=== PATIENT | male | born 1975 | race Caucasian/White ===

== ENCOUNTER 2018-02-01 15:15 | Emergency (ER) | payer SELFPAY ==
[2018-02-01 15:21] VITALS: BP 117/69
--- NOTE | 2018-02-01 16:19 | RADIOLOGY REPORT (SQ) ---
EXAM DESCRIPTION: WRIST LEFT 3 VIEWS COMPLETED DATE/TIME: 02/01/2018 3:56 pm REASON FOR STUDY: Wrist injury from fall yesterday COMPARISON: None. NUMBER OF VIEWS: Three views. TECHNIQUE: AP, lateral, and oblique radiographic images acquired of the left wrist. LIMITATIONS: None. FINDINGS: MINERALIZATION: Normal. BONES: No acute fracture or dislocation. No worrisome bone lesions. Normal alignment. SOFT TISSUES: No soft tissue swelling. No foreign body. OTHER: No other significant finding. IMPRESSION: NEGATIVE STUDY OF THE LEFT WRIST. NO RADIOGRAPHIC EVIDENCE OF ACUTE INJURY. TECHNICAL DOCUMENTATION: JOB ID: [id number] [employer]- All Rights Reserved Reading location - IP/workstation name: [email or web address]
--- NOTE | 2018-02-01 17:06 | RADIOLOGY REPORT (SQ) ---
EXAM DESCRIPTION: HAND RIGHT 3 VIEWS COMPLETED DATE/TIME: 02/01/2018 4:56 pm REASON FOR STUDY: Trauma and pain COMPARISON: None. EXAM PARAMETERS: NUMBER OF VIEWS: Three views. TECHNIQUE: AP, lateral and oblique radiographic images acquired of the right hand. LIMITATIONS: None. FINDINGS: MINERALIZATION: Normal. BONES: No acute fracture or dislocation. No worrisome bone lesions. JOINTS: No effusions. SOFT TISSUES: No soft tissue swelling. No foreign body. OTHER: No other significant finding. IMPRESSION: NEGATIVE STUDY OF THE RIGHT HAND. NO RADIOGRAPHIC EVIDENCE OF ACUTE INJURY. TECHNICAL DOCUMENTATION: JOB ID: [id number] [employer]- All Rights Reserved Reading location - IP/workstation name: [email or web address]
--- NOTE | 2018-02-01 17:06 | RADIOLOGY REPORT (SQ) ---
EXAM DESCRIPTION: ELBOW RIGHT OVER 2 VIEWS COMPLETED DATE/TIME: 02/01/2018 4:56 pm REASON FOR STUDY: Trauma and pain COMPARISON: None. NUMBER OF VIEWS: Four views. TECHNIQUE: AP, lateral, and both oblique radiographic images acquired of the right elbow. LIMITATIONS: None. FINDINGS: MINERALIZATION: Normal. BONES: On the lateral view, there is minimal cortical irregularity of the coronoid process of the uln a. Remainder of the bony structures are intact. JOINT: No effusion. SOFT TISSUES: No soft tissue swelling. No foreign body. OTHER: No other significant finding. IMPRESSION: MINIMAL CORTICAL IRREGULARITY OF THE CORONOID PROCESS OF THE ULNA. THIS MAY BE CHRONIC OR COULD INDICATE A TINY AVULSION INJURY. NO OTHER SIGNIFICANT FINDINGS. TECHNICAL DOCUMENTATION: JOB ID: [id number] [employer]- All Rights Reserved Reading location - IP/workstation name: [email or web address]
--- NOTE | 2018-02-01 17:13 | ER Document Report ---
ED General - General Chief Complaint: Wrist Injury Stated Complaint: WRIST PAIN Time Seen by Provider: 02/01/18 16:36 TRAVEL OUTSIDE OF THE [place] IN LAST 30 DAYS: No COUNTRY TRAVELED TO/FROM: [facility] Notes: 42-year-old male who presents with right wrist injury. 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 Severe sharp and achy, primarily radial aspect in nature. Nonradiating, no head injury, no loss consciousness. No other modifying factors, no other associated symptoms, no other provocative or palliative factors. - Related Data Allergies/Adverse Reactions: No Known Allergies Allergy (Verified 02/01/18 15:16) Past Medical History - Social History Smoking Status: Never Smoker Family History: Reviewed & Not Pertinent, CAD - Medical History Medical History: Negative Pulmonary Medical History: Reports: Hx Asthma, Hx COPD Past Surgical History: Reports: Hx Orthopedic Surgery - right wrist x 2, right knee - Immunizations Hx Diphtheria, Pertussis, Tetanus Vaccination: Yes Review of Systems - Review of Systems Notes: No head injury, no vomiting, no chest pain, no abdominal pain Physical Exam - Vital signs Vitals: Temp Pulse Resp BP Pulse Ox 98.1 F 76 16 117/69 96 02/01/18 15:20 02/01/18 15:20 02/01/18 15:20 02/01/18 15:20 02/01/18 15:20 - Notes Notes: General: Well-developed, well-nourished HEENT: Normocephalic. No external trauma noted. No watson sign, no hemotympanum. Mucosa is moist. No intraoral trauma. Neck: Midline trachea, no JVD. No midline cervical spine tenderness. No step- off or deformity. Chest: Normal excursion, no accessory muscle use. No gross trauma. Abdomen: Soft, nondistended. Nontender. No bruising. Pelvis: Stable. Vascular: Strong and symmetric upper and lower extremity pulses. Well-perfused extremities. Motor: Normal tone and power. Neurologic: Alert, nonfocal. Sensation symmetric and intact. Skin: No significant lacerations or purpura. Extremities: No cyanosis. Point tenderness noted about the posterior lateral elbow, radial aspect of the wrist, dorsal hand. No deformity. No bruising. Course - Re-evaluation Re-evalutation: Well-appearing male with isolated right upper extremity injury. Will obtain plain films of the wrist, hand, elbow, treat pain and reassess. Plain films are unremarkable with the exception of the wrist which show some slight cortical irregularity of the ulnar coronoid process it is felt to be old. On reexamination the patient has no point tenderness in this area. Patient is given a cockup splint, sling for comfort, close outpatient follow-up. - Vital Signs Vital signs: Temp Pulse Resp BP Pulse Ox 98.1 F 76 16 117/69 96 02/01/18 15:20 02/01/18 15:20 02/01/18 15:20 02/01/18 15:20 02/01/18 15:20 Discharge - Discharge Clinical Impression: Wrist sprain Qualifiers: Encounter type: initial encounter Laterality: right Qualified Code(s): S63.501A - Unspecified sprain of right wrist, initial encounter Condition: Stable Disposition: HOME, SELF-CARE Instructions: Wrist Sprain ([facility])
== END 2018-02-01 17:30 | disposition home or self-care (01) ==
LOC: ER 15:15
DX: S63.501A Unspecified sprain of right wrist, initial encounter (principal); M25.521 Pain in right elbow; M25.531 Pain in right wrist; M79.641 Pain in right hand; W11.XXXA Fall on and from ladder, initial encounter; J44.9 Chronic obstructive pulmonary disease, unspecified
CPT/HCPCS: 99283; 73080; 73130; 73110; L3908

== ENCOUNTER 2018-02-08 09:23 | Emergency (ER) | payer SELFPAY ==
[2018-02-08 09:28] VITALS: BP 125/86
--- NOTE | 2018-02-08 10:05 | ER Document Report ---
HPI - HPI Patient complains to provider of: recheck Onset: Last week Onset/Duration: Better Quality of pain: No pain Pain Level: 0 Context: Patient states that he fell on outstretched hand last week injuring his right wrist. Patient states that he was seen and placed in a wrist splint. Patient states that his employer requires a note clearing him to return back to work. Patient denies any new injury. Associated Symptoms: None Exacerbated by: Denies Relieved by: Denies Similar symptoms previously: No Recently seen / treated by doctor: Yes - ROS ROS below otherwise negative: Yes Systems Reviewed and Negative: Yes All other systems reviewed and negative - REPRODUCTIVE Reproductive: DENIES: : - MUSCULOSKELETAL Musculoskeletal: DENIES: Extremity pain, Swelling - DERM Skin Color: Normal Past Medical History - General Information source: Patient - Social History Smoking Status: Current Every Day Smoker Smoking Education Provided: Yes Frequency of alcohol use: None Drug Abuse: None Occupation: electro mechanical assembler Family History: Reviewed & Not Pertinent, CAD Pulmonary Medical History: Reports: Hx Asthma, Hx COPD Renal/ Medical History: Denies: Hx Peritoneal Dialysis Past Surgical History: Reports: Hx Orthopedic Surgery - right wrist x 2, right knee - Immunizations Hx Diphtheria, Pertussis, Tetanus Vaccination: Yes Vertical Provider Document - CONSTITUTIONAL Agree With Documented VS: Yes General Appearance: WD/WN, No Apparent Distress - INFECTION CONTROL TRAVEL OUTSIDE OF THE [place] IN LAST 30 DAYS: No - HEENT HEENT: Atraumatic, Normocephalic - NECK Neck: Normal Inspection - RESPIRATORY Respiratory: No Respiratory Distress - CARDIOVASCULAR Pulses: Normal: Radial - MUSCULOSKELETAL/EXTREMETIES Musculoskeletal/Extremeties: MAEW, FROM, Non-Tender, No Edema - NEURO Level of Consciousness: Awake, Alert, Appropriate Motor/Sensory: No Motor Deficit, No Sensory Deficit - DERM Integumentary: Warm, Dry, No Rash Course - Vital Signs Vital signs: Temp Pulse Resp BP Pulse Ox 97.7 F 74 16 125/86 H 97 02/08/18 09:27 02/08/18 09:27 02/08/18 09:27 02/08/18 09:27 02/08/18 09:27 - Diagnostic Test Radiology reviewed: Reports reviewed - from previous er visit Discharge - Discharge Clinical Impression: Normal exam, Hx of sprain of wrist Condition: Stable Disposition: HOME, SELF-CARE Instructions: Normal Exam and Workup ([facility]) Additional Instructions: Return immediately for any new or worsening symptoms Followup with your primary care provider, call tomorrow to make a followup appointment Follow-up with orthopedic doctor for any continued pain or problems Forms: Smoking Cessation Education, Return to Work Referrals: [facility] [Provider Group] - Follow up as needed [facility] [Provider Group] - Follow up as needed [facility] [Provider Group] - Follow up as needed
== END 2018-02-08 10:20 | disposition home or self-care (01) ==
LOC: ER 09:23
DX: Z09 Encounter for follow-up examination after completed treatment for conditions other than malignant neoplasm (principal)
CPT/HCPCS: 99281

== ENCOUNTER 2019-01-31 12:14 | Emergency (ER) | payer OTHER ==
[2019-01-31] MEDS ORDERED: ACETAMINOPHEN 325 MG TABLET PO ONE (12:41)
--- NOTE | 2019-01-31 12:41 | ER Document Report ---
ED Medical Screen (RME) - General Chief Complaint: Back Injury Stated Complaint: BACK PAIN Time Seen by Provider: 01/31/19 12:29 TRAVEL OUTSIDE OF THE [place] IN LAST 30 DAYS: No COUNTRY TRAVELED TO/FROM: [facility] Notes: 01/31/19 12:38 Patient is a 43-year-old male with a history of PE who presents emergency department complaining of having hemoptysis with the last episode about 5-6 days ago, but continuing to have pain to the mid back with deep inspiration. Patient states that he is not currently on any blood thinning medications. Patient also presents complaining of left mid to low back pain status post injury while at work. Patient states that a month ago he injured his back which was improving until he was lifting something yesterday and heard a pop in his back. Patient states that twisting and bending movements make his pain worse. He is otherwise eating and drinking without difficulty. He is urinating normally and having normal bowel movements. Denies any headache, fever, URI, sore throat, chest pain, palpitations, syncope, shortness of breath, wheeze, dyspnea, abdominal pain, nausea/vomiting/diarrhea, urinary retention, dysuria, hematuria, loss of control of bowel or bladder, numbness/tingling, saddle anesthesia, muscle paralysis/weakness, or rash. I have treated and performed a rapid initial assessment of this patient. A comprehensive ED assessment and evaluation of the patient, analysis of test results and completion of medical decision making process will be conducted by additional ED providers. PHYSICAL EXAMINATION: GENERAL: Well-appearing, well-nourished and in no acute distress. A&Ox4. Answers questions appropriately. LUNGS: Breath sounds clear to auscultation bilaterally and equal. No wheezes rales or rhonchi. HEART: Regular rate and rhythm without murmurs, rubs, gallops. Musculoskeletal: LE's b/l: FROM to passive/active. Strength 5+/5. No deficits noted. No bony tenderness of extremities. Back: FROM to passive/active. Strength 5+/5. No vertebral point tenderness, stepoffs, or deformities. No other bony tenderness, erythema, swelling, or ecchymosis. SLR negative b/l. There is noted spasming and left T/L paraspinal muscle tenderness that reproduces pain when palpated. No SI jt tenderness. No foot drop Extremities: No cyanosis, clubbing, or edema b/l. NEUROLOGICAL: Normal speech, normal gait. PSYCH: Normal mood, normal affect. - Related Data Allergies/Adverse Reactions: No Known Allergies Allergy (Verified 01/31/19 12:15) Past Medical History - Social History Frequency of alcohol use: Occasional Drug Abuse: None Pulmonary Medical History: Reports: Hx Asthma, Hx COPD Renal/ Medical History: Denies: Hx Peritoneal Dialysis Past Surgical History: Reports: Hx Orthopedic Surgery - right wrist x 2, right knee, Lt wrist - Immunizations Hx Diphtheria, Pertussis, Tetanus Vaccination: Yes Physical Exam - Vital signs Vitals: Temp Pulse Resp BP Pulse Ox 98.0 F 65 14 130/71 H 96 01/31/19 12:21 01/31/19 12:21 01/31/19 12:21 01/31/19 12:21 01/31/19 12:21 Course - Vital Signs Vital signs: Temp Pulse Resp BP Pulse Ox 98.0 F 65 14 130/71 H 96 01/31/19 12:21 01/31/19 12:21 01/31/19 12:21 01/31/19 12:21 01/31/19 12:21
[2019-01-31] MEDS ORDERED: LIDOCAINE 5% (700 MG) TRANSDERMAL ADH..PATCH TP ONE (12:42)
[2019-01-31 13:01] LABS: ABSOLUTE BASOPHILS # (AUTO) 0.1 10^3/uL (0.0-0.2); ABSOLUTE EOSINOPHILS # (AUTO) 0.4 10^3/uL (0.0-0.6); ABSOLUTE LYMPHOCYTES (AUTO) 1.5 10^3/uL (0.5-4.7); ABSOLUTE MONOCYTES (AUTO) 0.6 10^3/uL (0.1-1.4); ABSOLUTE NEUT (AUTO) 3.8 10^3/uL (1.7-8.2); BASOPHILS % (AUTO) 0.9 % (0-2); EOSINOPHILS % (AUTO) 6.3 % (0-6); HEMATOCRIT 41.2 % (37.9-51.0); HEMOGLOBIN 14.2 g/dL (13.5-17.0); LYMPHOCYTES % (AUTO) 22.9 % (13-45); MEAN CORPUSCULAR HEMOGLOBIN 32.5 pg (27.0-33.4); MEAN CORPUSCULAR HGB CONC 34.6 g/dL (32.0-36.0); MEAN CORPUSCULAR VOLUME 94 fl (80-97); MONOCYTES % (AUTO) 9.4 % (3-13); PLATELET COUNT 279 10^3/uL (150-450); RED BLOOD COUNT 4.39 10^6/uL (4.35-5.55); RED CELL DISTRIBUTION WIDTH 12.4 % (11.5-14.0); SEGMENTED NEUTROPHILS % (AUTO) 60.5 % (42-78); TOTAL CELLS COUNTED % (AUTO) 100 %; WHITE BLOOD COUNT 6.3 10^3/uL (4.0-10.5)
[2019-01-31 13:09] LABS: INTERNATIONAL RATION (INR) 0.98; PROTHROMBIN TIME 13.5 SEC (11.4-15.4)
[2019-01-31 13:10] LABS: PARTIAL THROMBOPLASTIN TIME 42.5 SEC (23.5-35.8)
[2019-01-31 13:27] LABS: ALANINE AMINOTRANSFERASE 27 U/L (21-72); ALBUMIN 4.2 g/dL (3.5-5.0); ALKALINE PHOSPHATASE 77 U/L (38-126); ANION GAP 9 (5-19); ASPARTATE AMINO TRANSFERASE 20 U/L (17-59); BILIRUBIN,DIRECT 0.2 mg/dL (0.0-0.4); BILIRUBIN,TOTAL 0.8 mg/dL (0.2-1.3); BLOOD UREA NITROGEN 11 mg/dL (7-20); CALCIUM 9.5 mg/dL (8.4-10.2); CARBON DIOXIDE 29 mmol/L (22-30); CHLORIDE 101 mmol/L (98-107); GLUCOSE 87 mg/dL (75-110); POTASSIUM 4.5 mmol/L (3.6-5.0); SODIUM 139.4 mmol/L (137-145)
--- NOTE | 2019-01-31 13:28 | RADIOLOGY REPORT (SQ) ---
EXAM DESCRIPTION: CHEST 2 VIEWS COMPLETED DATE/TIME: 01/31/2019 1:01 pm REASON FOR STUDY: hemoptysis COMPARISON: 10/08/2016 EXAM PARAMETERS: NUMBER OF VIEWS: two views TECHNIQUE: Digital Frontal and Lateral radiographic views of the chest acquired. RADIATION DOSE: NA LIMITATIONS: none FINDINGS: LUNGS AND PLEURA: No opacities, masses or pneumothorax. No pleural effusion. MEDIASTINUM AND HILAR STRUCTURES: No masses or contour abnormalities. HEART AND VASCULAR STRUCTURES: Heart normal size. No evidence for failure. BONES: No acute findings. HARDWARE: None in the chest. OTHER: No other significant finding. IMPRESSION: 1. No significant interval changes since the prior examination dated 10/08/2016. No acu te findings. TECHNICAL DOCUMENTATION: JOB ID: [id number] [employer]- All Rights Reserved Reading location - IP/workstation name: [email or web address]
--- NOTE | 2019-01-31 13:30 | RADIOLOGY REPORT (SQ) ---
EXAM DESCRIPTION: CTA CHEST COMPLETED DATE/TIME: 01/31/2019 1:09 pm REASON FOR STUDY: hemoptysis, h/o PE COMPARISON: None. TECHNIQUE: CT scan of the chest performed using helical scanning technique with dynamic intravenous contrast injection. Images reviewed with lung, soft tissue and bone windows. Reconstructed coronal and sagittal MPR images reviewed. Additional 3 dimensional post-processing performed to develop Maximal Intensity Projection images ([place] P). All images stored on PACS. All CT scanners at this facility use dose modulation, iterative reconstruction, and/or weight based d osing when appropriate to reduce radiation dose to as low as reasonably achievable (ALARA). [facility]: Dose Right [facility]: CareDose [facility]: Dose Right [facility]: Teradose 4D [facility]: Docracy CONTRAST TYPE AND DOSE: contrast/concentration: Isovue 350.00 mg/ml; Total Contrast Delivered: 72.0 ml; Total Saline Delivered: 110.0 ml Contrast bolus optimized for the pulmonary arteries. Not diagnostic for the aorta. RENAL FUNCTION: None required. The patient is less than 50 years old. RADIATION DOSE: CT Rad equipment meets quality standard of care and radiation dose reduction techniq ues were employed. CTDIvol: 13.2 - 14.3 mGy. DLP: 501 mGy-cm. . LIMITATIONS: None. FINDINGS: LUNGS AND PLEURA: Paraseptal emphysema. Small pulmonary nodules, the largest a 6 mm fissu ral nodule of the left lower lobe. No masses, infiltrates, or pneumothorax. No pleural effusions or pleural calcifications. AORTA AND GREAT VESSELS: No aneurysm. Contrast bolus not optimized for the aorta. HEART: No pericardial effusion. No significant coronary artery calcifications. PULMONARY ARTERIES: No emboli visualized in the main pulmonary arteries or the segmental branches. HILAR AND MEDIASTINAL STRUCTURES: No identified masses or abnormal nodes. HARDWARE: None in the chest. UPPER ABDOMEN: No significant findings. Limited exam. THYROID AND OTHER SOFT TISSUES: No masses. No adenopathy. BONES: No acute or significant finding. 3D MIPS: Confirm above findings. OTHER: No other significant finding. IMPRESSION: 1. Negative examination for pulmonary embolism. 2. Paraseptal emphysema. 3. Small nonspecific pulmonary nodules, the largest a 6 mm fissural nodule of the left lower lobe. Follow-up CT is optional for these pulmonary nodules at 1 year. COMMENT: Quality ID # [id number]: Final reports with documentation of one or more dose reduction techniques (e.g., Automated exposure control, adjustment of the mA and/or kV according to patient size, use of iterative reconstruction technique) TECHNICAL DOCUMENTATION: JOB ID: [id number] [employer]- All Rights Reserved Reading location - IP/workstation name: [email or web address]
--- NOTE | 2019-01-31 14:33 | ER Document Report ---
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 Patient's main complaint is left mid to low back pain status post injury while at work. Patient states that a month ago he injured his back which was improving until he was lifting something yesterday and heard a pop in his back. Patient states that twisting and bending movements make his pain worse. He is otherwise eating and drinking without difficulty. He is urinating normally and having normal bowel movements. Denies any headache, fever, URI, sore throat, chest pain, palpitations, syncope, shortness of breath, wheeze, dyspnea, abdominal pain, nausea/vomiting/diarrhea, urinary retention, dysuria, hematuria, loss of control of bowel or bladder, numbness/tingling, saddle anesthesia, muscle paralysis/weakness, or rash. TRAVEL OUTSIDE OF THE [place] IN LAST 30 DAYS: No COUNTRY TRAVELED TO/FROM: [facility] - Related Data Allergies/Adverse Reactions: No Known Allergies Allergy (Verified 01/31/19 12:15) Past Medical History - Social History Smoking Status: Current Every Day Smoker Frequency of alcohol use: Occasional Drug Abuse: None Family History: Reviewed & Not Pertinent, CAD Patient has suicidal ideation: No Patient has homicidal ideation: No Pulmonary Medical History: Reports: Hx Asthma, Hx COPD Renal/ Medical History: Denies: Hx Peritoneal Dialysis Past Surgical History: Reports: Hx Orthopedic Surgery - right wrist x 2, right knee, Lt wrist - Immunizations Hx Diphtheria, Pertussis, Tetanus Vaccination: Yes Review of Systems - Review of Systems Constitutional: See HPI EENT: No symptoms reported Cardiovascular: See HPI Respiratory: See HPI Gastrointestinal: See HPI Genitourinary: See HPI Male Genitourinary: No symptoms reported Musculoskeletal: No symptoms reported Skin: No symptoms reported Hematologic/Lymphatic: No symptoms reported Neurological/Psychological: See HPI Physical Exam - Vital signs Vitals: Temp Pulse Resp BP Pulse Ox 98.0 F 65 14 130/71 H 96 01/31/19 12:21 01/31/19 12:21 01/31/19 12:21 01/31/19 12:21 01/31/19 12:21 - Notes Notes: PHYSICAL EXAMINATION: Reviewed vital signs and charting by RN GENERAL: Alert, interacts well. No acute distress. HEAD: Normocephalic, atraumatic. EYES: Pupils equal and round. Extraocular movements intact. ENT: Oral mucosa moist, tongue midline. NECK: Full range of motion. Supple. Trachea midline. LUNGS: Clear to auscultation bilaterally, no wheezes, rales, or rhonchi. No respiratory distress. HEART: Regular rate and rhythm. No murmur ABDOMEN: soft, non-tender. Non-distended. Bowel sounds present. no McBurney's point tenderness, no Oliver sign. EXTREMITIES: Moves all 4 extremities spontaneously. No edema, No cyanosis. Normal distal neurovascular exam BACK: No CVAT, acute tenderness to palpation of the left latissimus dorsi and paraspinal muscles with acute spasm seen on exam NEUROLOGIC: Oriented and appropriate. Normal speech. PSYCH: Normal affect, normal mood. SKIN: Warm, dry, normal turgor. No rashes or lesions noted. Course - Re-evaluation Re-evalutation: 01/31/19 14:36 Patient overall appears in no acute distress. With history of PE chest CT was done and negative for PE. Within normal ranges. Patient's presentation most consistent with an acute musculoskeletal injury of his thoracic back sustained at work. Lidocaine patch placed. We will give him a short burst of steroids e iza though literature is mixed. 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 I have given him strict return precautions. - Vital Signs Vital signs: Temp Pulse Resp BP Pulse Ox 98.0 F 65 14 130/71 H 96 01/31/19 12:21 01/31/19 12:21 01/31/19 12:21 01/31/19 12:21 01/31/19 12:21 - Laboratory Result Diagrams: 01/31/19 12:46 01/31/19 12:46 Laboratory results interpreted by me: 01/31/19 01/31/19 12:46 12:46 Eosinophils % 6.3 H APTT 42.5 H Discharge - Discharge Clinical Impression: Back pain due to injury Condition: Good Disposition: HOME, SELF-CARE Instructions: Ice Packs ([facility]), Warm Packs ([facility]) Additional Instructions: You have been seen in the Emergency Department (ED) today for back pain. Your workup and exam have not shown any acute abnormalities and you are likely suffering from muscle strain or possible problems with your discs, but there is no treatment that will fix your symptoms at this time. Please take ibuprofen 600 mg every 6 hours with food or milk for the next 7 days. You can also take Tylenol 1000 mg every 6 hours for pain. I have also given you a prescription for lidocaine patches that he can place on the area of worst pain daily. Please follow instructions on the packaging. Apply heat to the area as often as you are able. Continue to keep active and avoid prolonged periods of bed rest. Please follow up with your doctor as soon as possible regarding today's ED visit and your back pain. Return to the ED for worsening back pain, fever, weakness or numbness of either leg, or if you develop either (1) an inability to urinate or have bowel movements, or (2) loss of your ability to control your bathroom functions (if you start having "accidents"), or if you develop other new symptoms that concern you.concern you. Forms: Return to Work
[2019-01-31] MEDS ORDERED: PREDNISONE 20 MG TABLET PO ONE (14:37)
[2019-01-31 15:06] VITALS: BP 117/81
== END 2019-01-31 15:07 | disposition home or self-care (01) ==
LOC: ER 12:14
DX: S29.9XXA Unspecified injury of thorax, initial encounter (principal); X58.XXXA Exposure to other specified factors, initial encounter; Y99.0 Civilian activity done for income or pay; Z86.711 Personal history of pulmonary embolism; J44.9 Chronic obstructive pulmonary disease, unspecified; F17.200 Nicotine dependence, unspecified, uncomplicated
CPT/HCPCS: 99284; 36415; 85025; 85610; 85730; 80053; 71046; 71275; J7512

== ENCOUNTER 2019-11-12 01:07 | Emergency (ER) | payer SELFPAY ==
[2019-11-12] MEDS ORDERED: ACETAMINOPHEN 325 MG TABLET PO ONE (01:26)
[2019-11-12 01:40] LABS: ABSOLUTE BASOPHILS # (AUTO) 0.1 10^3/uL (0.0-0.2); ABSOLUTE LYMPHOCYTES (AUTO) 0.9 10^3/uL (0.5-4.7); ABSOLUTE MONOCYTES (AUTO) 0.9 10^3/uL (0.1-1.4); ABSOLUTE NEUT (AUTO) 4.9 10^3/uL (1.7-8.2); BASOPHILS % (AUTO) 0.9 % (0-2); EOSINOPHILS % (AUTO) 0.7 % (0-6); HEMATOCRIT 43.2 % (37.9-51.0); LYMPHOCYTES % (AUTO) 12.6 % (13-45); MEAN CORPUSCULAR HGB CONC 34.7 g/dL (32.0-36.0); MEAN CORPUSCULAR VOLUME 95 fl (80-97); MONOCYTES % (AUTO) 13.9 % (3-13); PLATELET COUNT 243 10^3/uL (150-450); RED BLOOD COUNT 4.54 10^6/uL (4.35-5.55); RED CELL DISTRIBUTION WIDTH 12.5 % (11.5-14.0); SEGMENTED NEUTROPHILS % (AUTO) 71.9 % (42-78); TOTAL CELLS COUNTED % (AUTO) 100 %; WHITE BLOOD COUNT 6.8 10^3/uL (4.0-10.5)
[2019-11-12 01:57] LABS: ALBUMIN 3.4 g/dL (3.5-5.0); ALKALINE PHOSPHATASE 50 U/L (38-126); ANION GAP 9 (5-19); ASPARTATE AMINO TRANSFERASE 34 U/L (17-59); BILIRUBIN,DIRECT 0.2 mg/dL (0.0-0.4); BILIRUBIN,TOTAL 0.3 mg/dL (0.2-1.3); BLOOD UREA NITROGEN 8 mg/dL (7-20); CALCIUM 8.4 mg/dL (8.4-10.2); CARBON DIOXIDE 26 mmol/L (22-30); CHLORIDE 103 mmol/L (98-107); CREATINE KINASE 118 U/L (55-170); GLUCOSE 142 mg/dL (75-110); POTASSIUM 3.9 mmol/L (3.6-5.0); TOTAL PROTEIN 5.8 g/dL (6.3-8.2)
[2019-11-12 02:11] LABS: CREATINE KINASE MB < 0.22 ng/mL (<4.55); TROPONIN I < 0.012 ng/mL
[2019-11-12] MEDS ORDERED: ASPIRIN 81 MG TABLET, CHEWABLE PO ONE (02:44)
--- NOTE | 2019-11-12 02:52 | RADIOLOGY REPORT (SQ) ---
EXAM DESCRIPTION: XR CHEST 2 VIEWS COMPLETED DATE/TME: 11/12/2019 00:00 CLINICAL HISTORY: SOB, chest pain COMPARISON: None. FINDINGS: Frontal and lateral views of the chest. Cardiomediastinal silhouette: Normal size and contour. Lungs: No consolidation, pneumothorax, or pleural effusion. Bones: No acute osseous abnormality. Leads overlie the chest. Upper abdomen: No abnormality identified. IMPRESSION: 1. No acute pulmonary process identified.
--- NOTE | 2019-11-12 02:54 | ER Document Report ---
ED General - General Chief Complaint: Chest Pain Stated Complaint: COUGHING BLOOD/CHEST PAIN Time Seen by Provider: 11/12/19 02:32 Primary Care Provider: [facility] [Provider Group] - Follow up as needed [facility] [Provider Group] - Follow up as needed [facility] [Provider Group] - Follow up as needed [facility] [Provider Group] - Follow up as needed Mode of Arrival: Ambulatory Information source: Patient Notes: 43-year-old male presented to ED for complaint of chest pain x2 to 3 days. He states he has a very sharp tightness to the mid sternum radiates to the back. He reports symptoms have gotten gradually worse over the last several days. He states he did have a syncopal episode earlier when he was coughing so much. He denies any fevers chills nausea or vomiting. Patient is able to speak in full sentences. Patient is alert oriented respirations regular nonlabored. He states he does have a history of COPD and pulmonary emboli. He states his last blood clot was about 12 years ago. He does smoke a pack a day drinks 2-3 times a week. TRAVEL OUTSIDE OF THE [place] IN LAST 30 DAYS: No COUNTRY TRAVELED TO/FROM: [facility] - [facility] Onset: Other Onset/Duration: Gradual Quality of pain: Sharp Severity: Moderate Pain Level: 4 Associated symptoms: Chest pain, Nonproductive cough, Shortness of breath Exacerbated by: Coughing Relieved by: Denies Similar symptoms previously: Yes Recently seen / treated by doctor: No - Related Data Allergies/Adverse Reactions: No Known Allergies Allergy (Verified 01/31/19 12:15) Past Medical History - General Information source: Patient - Social History Smoking Status: Current Every Day Smoker Cigarette use (# per day): Yes - Pack per day Smoking Education Provided: Yes - 4 minutes Frequency of alcohol use: Social - A sixpack a week Drug Abuse: None Lives with: Alone Family History: Reviewed & Not Pertinent, CAD Patient has suicidal ideation: No Patient has homicidal ideation: No - Past Medical History Cardiac Medical History: Reports: Hx Pulmonary Embolism Pulmonary Medical History: Reports: Hx Asthma, Hx COPD EENT Medical History: Reports: None Neurological Medical History: Reports: None Endocrine Medical History: Reports: None Renal/ Medical History: Reports: None Malignancy Medical History: Reports None GI Medical History: Reports: None Musculoskeletal Medical History: Reports None Skin Medical History: Reports None Psychiatric Medical History: Reports: None Traumatic Medical History: Reports: None Infectious Medical History: Reports: None Past Surgical History: Reports: Hx Orthopedic Surgery - right wrist x 2, right knee, Lt wrist - Immunizations Hx Diphtheria, Pertussis, Tetanus Vaccination: Yes Review of Systems - Review of Systems Constitutional: Fever, Recent illness EENT: No symptoms reported Cardiovascular: Chest pain, Syncope Respiratory: Cough, Short of breath Gastrointestinal: No symptoms reported Genitourinary: No symptoms reported Male Genitourinary: No symptoms reported Musculoskeletal: No symptoms reported Skin: No symptoms reported Hematologic/Lymphatic: No symptoms reported Neurological/Psychological: No symptoms reported -: Yes All other systems reviewed and negative Physical Exam - Vital signs Vitals: Temp Pulse Resp BP Pulse Ox 100.9 F H 108 H 20 146/81 H 95 11/12/19 01:24 11/12/19 01:24 11/12/19 01:24 11/12/19 01:24 11/12/19 01:24 Interpretation: Tachycardic, Febrile - General General appearance: Appears well, Alert - HEENT Head: Normocephalic, Atraumatic Eyes: Normal Pupils: PERRL - Respiratory Respiratory status: No respiratory distress Chest status: Nontender Breath sounds: Nonproductive cough, Rhonchi Chest palpation: Normal - Cardiovascular Rhythm: Regular Heart sounds: Normal auscultation Murmur: No - Abdominal Inspection: Normal Distension: No distension Bowel sounds: Normal Tenderness: Nontender Organomegaly: No organomegaly - Back Back: Normal, Nontender - Extremities General upper extremity: Normal inspection, Nontender, Normal color, Normal ROM, Normal temperature General lower extremity: Normal inspection, Nontender, Normal color, Normal ROM, Normal temperature, Normal weight bearing. No: Tiffanie's sign - Neurological Neuro grossly intact: Yes Cognition: Normal Orientation: AAOx4 [place] Coma Scale Eye Opening: Spontaneous Richelle Coma Scale Verbal: Oriented Richelle Coma Scale Motor: Obeys Commands Richelle Coma Scale Total: 15 Speech: Normal Motor strength normal: LUE, RUE, LLE, RLE Sensory: Normal - Psychological Associated symptoms: Normal affect, Normal mood - Skin Skin Temperature: Warm Skin Moisture: Dry Skin Color: Normal Course - Re-evaluation Re-evalutation: 11/12/19 08:30 Labs and x-ray discussed with patient. Patient was treated with a bronchodilator and steroids while in the emergency room. He states he was feeling much better before he was discharged. Patient was instructed to follow- up with his primary doctor. Patient verbalized understanding and agreement with treatment plan. - Vital Signs Vital signs: Temp Pulse Resp BP Pulse Ox 99.3 F 108 H 13 120/82 98 11/12/19 04:00 11/12/19 01:24 11/12/19 07:01 11/12/19 07:01 11/12/19 07:01 - Laboratory Result Diagrams: 11/12/19 01:30 11/12/19 01:30 Laboratory results interpreted by me: 11/12/19 11/12/19 11/12/19 01:30 01:30 03:05 Lymph % (Auto) 12.6 L Charles % (Auto) 13.9 H VBG pH 7.43 H Glucose 142 H Total Protein 5.8 L Albumin 3.4 L - Diagnostic Test Radiology reviewed: Image reviewed, Reports reviewed Discharge - Discharge Clinical Impression: Chest pain Qualifiers: Chest pain type: unspecified Qualified Code(s): R07.9 - Chest pain, unspecified Condition: Stable Disposition: HOME, SELF-CARE Additional Instructions: CHEST PAIN OF UNCLEAR CAUSE: The exact cause of your chest pain isn't clear. Fortunately, there is no evidence of a dangerous medical condition. Further testing may be required to find the source of the pain. Most often, we find that this pain is coming from the chest wall -- the muscles or rib joints in the chest. But chest pain can come from the lung and lung lining, the esophagus, the heart valves or heart lining, and even the stomach or gallbladder. Rest. Eat lightly until the pain is gone. We may prescribe medicine for pain and inflammation. You should call the physician immediately if the pain radiates to the shoulder, jaw or arms; if you start to run a fever or develop a cough; or if you develop shortness of breath, or other new or alarming symptoms. NORMAL EXAM AND WORKUP: At this time, your examination and workup show no significant abnormality. No significant abnormal physical findings were noted. All laboratory, EKG, and imaging (x-ray, CT scans, ultrasound) studies that were ordered show no significant abnormality. Although your examination and all studies that were ordered showed no significant abnormal finding, there are no examinations and no studies that are 100% accurate. There is always the possibility that some abnormality could exist and not be detected with physical examination or within the limits and capabilities of laboratory and other studies. You should return or follow up as you were instructed on your visit today for further evaluation if your symptoms do not resolve. ASPIRIN: Aspirin has been shown to have a beneficial effect on blood circulation by reducing the clotting effect of platelets in the blood. These beneficial effects can be achieved by taking just a single baby (81 mg) aspirin a day. It is recommended that any person over the age of forty take a single baby aspirin every day for heart and brain circulation, unless you are allergic to aspirin or have some significant bleeding disorder. It is strongly recommended that people who have proven cardiac or blood circulation disturbances should take a baby aspirin every day. Your CT chest x-ray and labs have been discussed with you and will report of labs and CT chest x-ray given to you. You state you do feel much better after I gave you the DuoNeb and prednisone. I will send you home with an albuterol inhaler and a prescription for some prednisone. Please follow-up with your primary care doctor within the next 3 to 5 days. FOLLOW-UP CARE: If you have been referred to a physician for follow-up care, call the physici ans office for an appointment as you were instructed or within the next two days. If you experience worsening or a significant change in your symptoms, notify the physician immediately or return to the Emergency Department at any time for re-evaluation. Prescriptions: Albuterol Sulfate [Proair HFA Inhalation Aerosol 8.5 gm MDI] 2 puff IH Q4H PRN #1 mdi PRN Reason: Prednisone [Sterapred Ds] 1 pkg PO ASDIR PRN 12 Days tab.ds.pk PRN Reason: Forms: Elevated Blood Pressure, Smoking Cessation Education Referrals: [facility] [Provider Group] - Follow up as needed [facility] [Provider Group] - Follow up as needed [facility] [Provider Group] - Follow up as needed [facility] [Provider Group] - Follow up as needed
[2019-11-12] MEDS ORDERED: NORMAL SALINE IV ONE (02:55)
[2019-11-12] MEDS ORDERED: PIPERACILLIN/TAZOBACTAM 4.5 GM VIAL IV ONE (02:55)
[2019-11-12 03:33] LABS: VENOUS BLOOD BASE EXCESS 0.8 mmol/L; VENOUS BLOOD HCO3 25.1 mmol/L (20-32); VENOUS BLOOD PCO2 39.2 mmHg (35-63); VENOUS BLOOD PH 7.43 (7.30-7.42)
--- NOTE | 2019-11-12 04:03 | RADIOLOGY REPORT (SQ) ---
EXAM DESCRIPTION: CT CHEST ANGIOGRAPHY WITHOUT THEN WITH IV CONTRAST COMPLETED DATE/TME: 11/12/2019 02:44 CLINICAL HISTORY: 43 years, Male, chest pain hx of pulmonary emboli COMPARISON: None available. TECHNIQUE: Axial images through the chest were performed after the administration of intravenous contrast using a pulmonary embolus protocol. MIPS were performed. This exam was performed according to our departmental dose-optimization program which includes use of Automated Exposure Control, adjustment of the mA and/or kV according to patient size and/or use of iterative reconstruction technique. FINDINGS: No pulmonary embolus is identified. Normal caliber aorta without dissection. No pericardial effusion. Cardiac chambers are normal in size. Prominent right hilar lymph node measuring 9 mm in the short axis. No pleural effusion. No focal lung consolidation. Paraseptal emphysematous changes. Mild central bronchial wall thickening. Small nodular changes bilaterally, the largest associated with the left major fissure probably represents a lymph node. Subcentimeter calcified granuloma noted in the middle lobe. No pneumothorax. Patent central airway. Soft tissues are unremarkable. No acute osseous findings. No acute abnormality within the visualized upper abdomen. IMPRESSION: Negative for pulmonary embolism. Mild central bronchial wall thickening possibly related to bronchitis. No confluent pulmonary opacities. Paraseptal emphysematous changes. Small nodular opacities, the largest associated with the left major fissure measuring 7 mm probably represent lymph nodes, recommend follow-up CT chest in one year.
[2019-11-12] MEDS ORDERED: IPRATROPIUM/ALBUTEROL 0.5-2.5 MG/3 ML AMPUL NEB ONE (05:15)
[2019-11-12] MEDS ORDERED: PREDNISONE 20 MG TABLET PO ONE (05:15)
[2019-11-12 07:44] VITALS: BP 120/82
--- NOTE | 2019-11-12 20:46 | EKG REPORT ---
SEVERITY:- BORDERLINE ECG - SINUS OR ECTOPIC ATRIAL TACHYCARDIA PROBABLE LEFT ATRIAL ABNORMALITY : Confirmed by: Juliana Izquierdo 12-Nov-2019 20:45:20
== END 2019-11-12 07:49 | disposition home or self-care (01) ==
LOC: ER 01:07
DX: R07.9 Chest pain, unspecified (principal); R06.02 Shortness of breath; R50.9 Fever, unspecified; F17.210 Nicotine dependence, cigarettes, uncomplicated; Z86.711 Personal history of pulmonary embolism
CPT/HCPCS: 93005; 99406; 94640; 99285; 96361; 96365; 36415; 87040; 82553; 82550; 83605; 83690; 85025; 80053; 84484; 82803; 71046; 71275; 93010; J7512; J7030; J7620; J2543

== ENCOUNTER 2020-08-01 21:57 | Emergency (ER) | payer SELFPAY ==
[2020-08-01 22:22] VITALS: BP 112/76
[2020-08-01] MEDS ORDERED: IPRATROPIUM/ALBUTEROL 0.5-2.5 MG/3 ML AMPUL NEB ONE (22:30)
[2020-08-01] MEDS ORDERED: METHYLPREDNISOLONE INJ 125 MG/2 ML SDV IV ONE (22:30)
[2020-08-01] MEDS ORDERED: ONDANSETRON HCL INJ/PF 4 MG/2 ML SDV IV ONE (22:31)
[2020-08-01] MEDS ORDERED: NORMAL SALINE 1000 ML 1,000 ML IV ONE (22:31)
--- NOTE | 2020-08-01 22:32 | ER Document Report ---
ED Medical Screen (RME) - General Chief Complaint: Shortness Of Breath Stated Complaint: COUGH/CONGESTION SHORTNESS OF BREATH FEVER Time Seen by Provider: 08/01/20 22:30 Information source: Patient Notes: Patient presents complaining of cough congestion for the past 3 days. Patient also reports nausea vomiting diarrhea. Patient reports fever of 101 today. Patient does have a history of COPD. I have greeted and performed a rapid initial assessment of this patient. A comprehensive ED assessment and evaluation of the patient, analysis of test results and completion of the medical decision making process will be conducted by additional ED providers. TRAVEL OUTSIDE OF THE [place] IN LAST 30 DAYS: No - Related Data Allergies/Adverse Reactions: No Known Allergies Allergy (Verified 01/31/19 12:15) Past Medical History - Social History Frequency of alcohol use: Occasional Drug Abuse: None - Past Medical History Cardiac Medical History: Reports: Hx Pulmonary Embolism Pulmonary Medical History: Reports: Hx Asthma, Hx COPD Past Surgical History: Reports: Hx Orthopedic Surgery - right wrist x 2, right knee, Lt wrist - Immunizations Hx Diphtheria, Pertussis, Tetanus Vaccination: Yes Physical Exam - Vital signs Vitals: Temp Pulse Resp BP Pulse Ox 98.4 F 100 20 112/76 94 08/01/20 22:20 08/01/20 22:20 08/01/20 22:20 08/01/20 22:20 08/01/20 22:20 - Respiratory Respiratory status: Tachypnea. No: Labored Breath sounds: Nonproductive cough, Wheezing Course - Vital Signs Vital signs: Temp Pulse Resp BP Pulse Ox 98.4 F 100 20 112/76 94 08/01/20 22:20 08/01/20 22:20 08/01/20 22:20 08/01/20 22:20 08/01/20 22:20
[2020-08-01 23:13] LABS: ABSOLUTE BASOPHILS # (AUTO) 0.1 10^3/uL (0.0-0.2); ABSOLUTE EOSINOPHILS # (AUTO) 0.1 10^3/uL (0.0-0.6); ABSOLUTE LYMPHOCYTES (AUTO) 1.5 10^3/uL (0.5-4.7); ABSOLUTE MONOCYTES (AUTO) 1.1 10^3/uL (0.1-1.4); ABSOLUTE NEUT (AUTO) 6.6 10^3/uL (1.7-8.2); BASOPHILS % (AUTO) 0.7 % (0-2); EOSINOPHILS % (AUTO) 1.5 % (0-6); HEMOGLOBIN 17.1 g/dL (13.5-17.0); LYMPHOCYTES % (AUTO) 15.9 % (13-45); MEAN CORPUSCULAR HEMOGLOBIN 33.5 pg (27.0-33.4); MEAN CORPUSCULAR VOLUME 96 fl (80-97); MONOCYTES % (AUTO) 11.9 % (3-13); PLATELET COUNT 296 10^3/uL (150-450); RED BLOOD COUNT 5.12 10^6/uL (4.35-5.55); RED CELL DISTRIBUTION WIDTH 12.2 % (11.5-14.0); TOTAL CELLS COUNTED % (AUTO) 100 %; WHITE BLOOD COUNT 9.5 10^3/uL (4.0-10.5)
[2020-08-01 23:22] LABS: ALBUMIN 4.1 g/dL (3.5-5.0); ALKALINE PHOSPHATASE 58 U/L (38-126); ANION GAP 8 (5-19); ASPARTATE AMINO TRANSFERASE 19 U/L (17-59); BILIRUBIN,DIRECT 0.3 mg/dL (0.0-0.4); BILIRUBIN,TOTAL 0.8 mg/dL (0.2-1.3); BLOOD UREA NITROGEN 8 mg/dL (7-20); CALCIUM 9.1 mg/dL (8.4-10.2); CARBON DIOXIDE 34 mmol/L (22-30); CHLORIDE 99 mmol/L (98-107); GLUCOSE 75 mg/dL (75-110); POTASSIUM 4.6 mmol/L (3.6-5.0); TOTAL PROTEIN 6.3 g/dL (6.3-8.2)
[2020-08-01 23:28] LABS: A TYPE INFLUENZA AG NEGATIVE (NEGATIVE); B INFLUENZA AG NEGATIVE (NEGATIVE)
--- NOTE | 2020-08-01 23:52 | RADIOLOGY REPORT (SQ) ---
EXAM DESCRIPTION: XR CHEST 1 VIEW COMPLETED DATE/TME: 08/01/2020 22:30 CLINICAL HISTORY: 44 years, Male, cough, diff breathing COMPARISON: 1216 chest NUMBER OF VIEWS: 1 TECHNIQUE: Portable chest LIMITATIONS: None. FINDINGS: Heart size is normal. Lungs are clear. No pneumothorax IMPRESSION: Negative chest copyright 2011 [employer]- All Rights Reserved
--- NOTE | 2020-08-02 03:43 | ER Document Report ---
ED General - General Chief Complaint: Shortness Of Breath Stated Complaint: COUGH/CONGESTION SHORTNESS OF BREATH FEVER Time Seen by Provider: 08/01/20 22:30 TRAVEL OUTSIDE OF THE [place] IN LAST 30 DAYS: No - HPI Notes: 44-year-old male presents with cough, congestion, fever and shortness of breath. His symptoms have been present for the past 3 days. He states his been taking Tylenol his fever, T-max 101F. He states that his symptoms initially started with some swollen glands on his neck, then progressed to cough and shortness of breath. He states he has a history of emphysema, diagnosed in his 30s. He states he has a family history of emphysema, his mom had emphysema had a double lung transplant in her 50s. He has a same gene. He also has having some vomiting after coughing. He states that he has not really kept anything down. He is also having diarrhea. No abdominal pain. He is a current everyday smoker, though notes that since he has been sick is been a lot harder to smoke cigarettes. - Related Data Allergies/Adverse Reactions: No Known Allergies Allergy (Verified 01/31/19 12:15) Past Medical History - General Information source: Patient - Social History Smoking Status: Current Every Day Smoker Frequency of alcohol use: Occasional Drug Abuse: None Family History: Reviewed & Not Pertinent, CAD - Past Medical History Cardiac Medical History: Reports: Hx Pulmonary Embolism Pulmonary Medical History: Reports: Hx Asthma, Hx COPD Past Surgical History: Reports: Hx Orthopedic Surgery - right wrist x 2, right knee, Lt wrist - Immunizations Hx Diphtheria, Pertussis, Tetanus Vaccination: Yes Review of Systems - Review of Systems Constitutional: Fever EENT: denies: Difficulty swallowing Cardiovascular: denies: Chest pain Respiratory: Cough, Hurts to breathe, Short of breath Gastrointestinal: Diarrhea, Nausea, Vomiting. denies: Abdominal pain Genitourinary: No symptoms reported Male Genitourinary: No symptoms reported Musculoskeletal: No symptoms reported Skin: No symptoms reported Neurological/Psychological: No symptoms reported Physical Exam - Vital signs Vitals: Temp Pulse Resp BP Pulse Ox 98.4 F 100 20 112/76 94 08/01/20 22:20 08/01/20 22:20 08/01/20 22:20 08/01/20 22:20 08/01/20 22:20 - General General appearance: Appears well, Alert In distress: None - HEENT Head: Normocephalic, Atraumatic Extraocular movements intact: Yes Pupils: PERRL Neck: Supple. No: Lymphadenopathy - Respiratory Respiratory status: No respiratory distress Breath sounds: Decreased air movement, Wheezing - Cardiovascular Rhythm: Regular Heart sounds: Normal auscultation - Abdominal Distension: No distension Tenderness: Nontender - Extremities General upper extremity: Normal ROM General lower extremity: Normal ROM. No: Edema - Neurological Neuro grossly intact: Yes Cognition: Normal Orientation: AAOx4 - Psychological Associated symptoms: Normal affect - Skin Skin Temperature: Warm Course - Re-evaluation Re-evalutation: 44-year-old male with fever, cough, shortness of breath, posttussive emesis, diarrhea x3 days. He has what sounds like alpha-1 antitrypsin deficiency based on his description of family history and genetic disease. He is nontoxic- appearing on exam, afebrile, vital signs stable. He does have some end expiratory wheezing. I discussed with him I suspect that he has COVID, he is agreeable to testing. He is also being tested for flu. Will treat symptomatically with DuoNeb, steroids, Robitussin, Toradol, Zofran and fluids. 08/02/20 05:17 No leukocytosis or left shift. Some increase in hemoglobin, likely due to hemoconcentration. Electrolytes within normal limits. Creatinine within normal limits. No elevation of LFTs or lipase. Flu negative. Chest x-ray is without consolidation. 08/02/20 05:22 In to reassess patient, he was sleeping in bed, awoke easily to voice. He reports he is feeling much better. He is ate some crackers. He is speaking in full sentences and lung sounds have some improvement. I discussed with him that he is being tested for COVID and will be called with the results. We will now treat him for emphysema exacerbation with prednisone and azithromycin P return precautions given, patient stable at time of discharge. 08/02/20 06:14 EKG is interpreted by me. Normal sinus rhythm, rate 88. Narrow QRS, QTC within normal limits. No ST segment elevation. - Vital Signs Vital signs: Temp Pulse Resp BP Pulse Ox 98.6 F 100 20 112/76 94 08/01/20 23:08 08/01/20 22:20 08/01/20 22:20 08/01/20 22:20 08/01/20 22:20 - Laboratory Result Diagrams: 08/01/20 22:40 08/01/20 22:40 Laboratory results interpreted by me: 08/01/20 08/01/20 22:40 22:40 Hgb 17.1 H MCH 33.5 H Carbon Dioxide 34 H - Diagnostic Test Radiology reviewed: Image reviewed, Reports reviewed Discharge - Discharge Clinical Impression: Acute exacerbation of emphysema, Person under investigation for COVID-19 Disposition: HOME, SELF-CARE Additional Instructions: Please begin course of steroids and Z-Chaka. You may use Zofran for nausea. Be sure to drink plenty of fluids. You have received a COVID test today, you will be called in a few days when it results. Until you get the result, please self quarantine at home. Return to the emergency department for any concerning worsening symptoms. Prescriptions: Azithromycin 250 mg PO ASDIR PRN 5 Days #6 tablet PRN Reason: Prednisone [Deltasone 20 mg Tablet] 2 tab PO DAILY 5 Days #10 tablet
[2020-08-02] MEDS ORDERED: IPRATROPIUM/ALBUTEROL 0.5-2.5 MG/3 ML AMPUL NEB ONE (03:56)
[2020-08-02] MEDS ORDERED: DEXAMETHASONE SOD PHOSPHATE INJ 4 MG/1 ML VIAL IV ONE (03:57)
[2020-08-02] MEDS ORDERED: GUAIFENESIN/D-METHORPHAN (200-20 MG) SYRUP 10 ML PO ONE (03:58)
[2020-08-02] MEDS ORDERED: KETOROLAC TROMETHAMINE INJ/PF 30 MG/1 ML SDV IV ONE (03:58)
[2020-08-02] MEDS ORDERED: ONDANSETRON HCL INJ/PF 4 MG/2 ML SDV IV ONE (03:58)
[2020-08-02] MEDS: ALBUTEROL SULFATE 0.083% NEB 2.5 MG/3 ML AMPUL NEB SCH (04:02)
[2020-08-02] MEDS: RINGERS SOLUTION,LACTATED 1,000 ML IV PRN ×2 (04:26→05:53)
[2020-08-02] MEDS ORDERED: ACETAMINOPHEN 325 MG TABLET PO ONE (05:38)
--- NOTE | 2020-08-02 07:54 | EKG REPORT ---
SEVERITY:- NORMAL ECG - SINUS RHYTHM : Confirmed by: Hugh Guardado MD 02-Aug-2020 07:53:38
== END 2020-08-02 07:32 | disposition home or self-care (01) ==
LOC: ER 21:57
DX: J43.9 Emphysema, unspecified (principal); R05 Cough; R11.2 Nausea with vomiting, unspecified; R50.9 Fever, unspecified; R06.02 Shortness of breath; R07.1 Chest pain on breathing; R19.7 Diarrhea, unspecified; F17.210 Nicotine dependence, cigarettes, uncomplicated; Z86.711 Personal history of pulmonary embolism; Z20.828 Contact with and (suspected) exposure to other viral communicable diseases; Z82.5 Family history of asthma and other chronic lower respiratory diseases
CPT/HCPCS: 93005; 94640; 99285; 96361; 96374; 96375; 36415; 87070; 87205; 83690; 85025; 87635; 80053; 87804; 71045; 93010; J1100; J1885; J3490; J2405; J7120; C9803

== ENCOUNTER 2020-08-06 16:02 | Emergency (ER) | payer SELFPAY ==
[2020-08-06] MEDS ORDERED: IPRATROPIUM/ALBUTEROL 0.5-2.5 MG/3 ML AMPUL NEB ONE ×2 (16:27→17:45)
--- NOTE | 2020-08-06 16:30 | ER Document Report ---
ED Medical Screen (RME) - General Chief Complaint: Shortness Of Breath Stated Complaint: CHEST PAIN TRAVEL OUTSIDE OF THE [place] IN LAST 30 DAYS: No - HPI Notes: 08/06/20 16:30 44-year-old male with a history of COPD and emphysema presents to the emergency room today with complaints of substernal chest pain, dry cough, wheezing that is become progressively worse over the last week. Patient was seen on August 01, did have a work-up for chest pains, coughing, not feeling well, was tested for COVID which came back negative. He is taking prednisone for his cough and COPD management. He states that he is not getting any better today. Patient is 92% on room air. Typically states he is around 96%-98% when he is well. Patient has not followed up with a PCP because he does not have insurance. Denies any abdominal pain, nausea, vomiting, diarrhea. Denies any fevers or chills. Patient lost his insurance otherwise he does wear supplemental oxygen at home I have greeted and performed a rapid initial assessment of this patient. A comprehensive ED assessment and evaluation of the patient, analysis of test results and completion of the medical decision making process will be conducted by additional ED providers. PHYSICAL EXAMINATION: GENERAL: Well-appearing, well-nourished and in mild distress HEAD: Atraumatic, normocephalic. EYES: Pupils equal round extraocular movements intact, conjunctiva are normal. NECK: Normal range of motion CV: s1, s2 regular LUNGS: Wheezing in all lobes Musculoskeletal: Normal range of motion NEUROLOGICAL: Normal speech, normal gait. SKIN: Warm, Dry, normal turgor, no rashes or lesions noted. - Related Data Allergies/Adverse Reactions: No Known Allergies Allergy (Verified 01/31/19 12:15) Past Medical History - Social History Chew tobacco use (# tins/day): No Frequency of alcohol use: Occasional Drug Abuse: None - Past Medical History Cardiac Medical History: Reports: Hx Pulmonary Embolism Pulmonary Medical History: Reports: Hx Asthma, Hx COPD Past Surgical History: Reports: Hx Orthopedic Surgery - right wrist x 2, right knee, Lt wrist - Immunizations Hx Diphtheria, Pertussis, Tetanus Vaccination: Yes Physical Exam - Vital signs Vitals: Temp Pulse Resp BP Pulse Ox 97.4 F 97 22 H 123/83 92 08/06/20 16:16 08/06/20 16:16 08/06/20 16:16 08/06/20 16:16 08/06/20 16:16 Course - Vital Signs Vital signs: Temp Pulse Resp BP Pulse Ox 97.4 F 97 22 H 123/83 92 08/06/20 16:16 08/06/20 16:16 08/06/20 16:16 08/06/20 16:16 08/06/20 16:16
[2020-08-06 16:52] LABS: ABSOLUTE BASOPHILS # (AUTO) 0.1 10^3/uL (0.0-0.2); ABSOLUTE EOSINOPHILS # (AUTO) 0.1 10^3/uL (0.0-0.6); ABSOLUTE LYMPHOCYTES (AUTO) 1.9 10^3/uL (0.5-4.7); BASOPHILS % (AUTO) 0.9 % (0-2); EOSINOPHILS % (AUTO) 0.5 % (0-6); HEMATOCRIT 43.8 % (37.9-51.0); HEMOGLOBIN 15.2 g/dL (13.5-17.0); LYMPHOCYTES % (AUTO) 16.9 % (13-45); MEAN CORPUSCULAR HEMOGLOBIN 32.9 pg (27.0-33.4); MEAN CORPUSCULAR HGB CONC 34.7 g/dL (32.0-36.0); MEAN CORPUSCULAR VOLUME 95 fl (80-97); MONOCYTES % (AUTO) 9.4 % (3-13); PLATELET COUNT 307 10^3/uL (150-450); RED BLOOD COUNT 4.61 10^6/uL (4.35-5.55); SEGMENTED NEUTROPHILS % (AUTO) 72.3 % (42-78); TOTAL CELLS COUNTED % (AUTO) 100 %
[2020-08-06 17:16] LABS: ALBUMIN 3.4 g/dL (3.5-5.0); ALKALINE PHOSPHATASE 46 U/L (38-126); ANION GAP 9 (5-19); ASPARTATE AMINO TRANSFERASE 19 U/L (17-59); BILIRUBIN,DIRECT 0.2 mg/dL (0.0-0.4); BILIRUBIN,TOTAL 0.8 mg/dL (0.2-1.3); BLOOD UREA NITROGEN 13 mg/dL (7-20); CALCIUM 9.2 mg/dL (8.4-10.2); CARBON DIOXIDE 26 mmol/L (22-30); CHLORIDE 105 mmol/L (98-107); CREATINE KINASE 92 U/L (55-170); GLUCOSE 130 mg/dL (75-110); POTASSIUM 3.8 mmol/L (3.6-5.0); TOTAL PROTEIN 5.7 g/dL (6.3-8.2)
[2020-08-06 17:29] LABS: CREATINE KINASE MB < 0.22 ng/mL (<4.55); TROPONIN I < 0.012 ng/mL
--- NOTE | 2020-08-06 17:40 | RADIOLOGY REPORT (SQ) ---
EXAM DESCRIPTION: CHEST SINGLE VIEW IMAGES COMPLETED DATE/TIME: 08/06/2020 5:21 pm REASON FOR STUDY: chest pain and sob COMPARISON: 08/01/2020 TECHNIQUE: Single frontal radiographic view of the chest acquired. NUMBER OF VIEWS: One view. LIMITATIONS: None. FINDINGS: LUNGS AND PLEURA: No pneumothorax. No consolidation or pleural effusion. MEDIASTINUM AND HILAR STRUCTURES: Stable. HEART AND VASCULAR STRUCTURES: Stable. BONES: No acute findings. HARDWARE: None in the chest. OTHER: No other significant finding. IMPRESSION: NO ACUTE FINDINGS. TECHNICAL DOCUMENTATION: JOB ID: [id number] 2010 [employer]- All Rights Reserved Reading location - IP/workstation name: [employer]
[2020-08-06] MEDS ORDERED: DEXAMETHASONE SOD PHOS INJ 10 MG/1 ML VIAL IV ONE (17:45)
--- NOTE | 2020-08-06 17:52 | ER Document Report ---
ED Respiratory Problem - General TRAVEL OUTSIDE OF THE [place] IN LAST 30 DAYS: No <SHANIQUE QUIÑONEZ - Last Filed: 08/06/20 19:23> - General Mode of Arrival: Ambulatory <ZACHARY GIBSON - Last Filed: 08/06/20 21:48> - General Chief Complaint: Shortness Of Breath Stated Complaint: CHEST PAIN Time Seen by Provider: 08/06/20 17:39 Notes: CHIEF COMPLAINT: Continued difficulty breathing, out of albuterol HPI: 44-year-old male presenting for evaluation of continued difficulty breathing states he was seen here several days ago for same complaint. States his friend took his albuterol inhaler back 2 days ago so has been without albuterol even though he is taking the steroids so feels like his breathing is worse. ROS: See HPI - all other systems were reviewed and are otherwise negative Constitutional: no fever Eyes: no drainage, no blurred vision ENT: no runny nose, no sore throat Cardiovascular: no chest pain Resp: + SOB, + cough GI: no vomiting, no diarrhea, no abdominal pain : no dysuria Integumentary: no rash Allergy: no hives Musculoskeletal: no extremity pain or swelling Neurological: no numbness/tingling, no weakness MEDICATIONS: I agree with the patient medications as charted by the RN. ALLERGIES: I agree with the allergies as charted by the RN. PAST MEDICAL HISTORY/PAST SURGICAL HISTORY: Reviewed and agree as charted by RN. SOCIAL HISTORY: Reviewed and agree as charted by RN. FAMILY HISTORY: No significant familial comorbid conditions directly related to patient complaint EXAM: Reviewed vital signs as charted by RN. CONSTITUTIONAL: Alert and oriented and responds appropriately to questions. Well-appearing; well-nourished HEAD: Normocephalic; atraumatic EYES: PERRL; Conjunctivae clear, sclerae non-icteric ENT: normal nose; no rhinorrhea; moist mucous membranes; pharynx without lesions noted, no uvula edema or deviation, no tonsillar hypertrophy, phonation normal NECK: Supple without meningismus; non-tender; no cervical lymphadenopathy, no masses CARD: RRR; no murmurs, no clicks, no rubs, no gallops; symmetric distal pulses RESP: Normal chest excursion without splinting or tachypnea; breath sounds very slight expiratory wheezing noted, no rhonchi, no rales, pulse oximetry 94% on room air not hypoxic. Patient is noted to be 92% when laying flat but when speaking and sitting up he is 94 to 95% ABD/GI: Normal bowel sounds; non-distended; soft, non-tender, no rebound, no guarding; no palpable organomegaly or masses. BACK: The back appears normal and is non-tender to palpation, there is no CVA tenderness EXT: Normal ROM in all joints; non-tender to palpation; no cyanosis, no effusions, no edema SKIN: Normal color for age and race; warm; dry; good turgor; no acute lesions noted NEURO: Moves all extremities equally; Motor and sensory function intact PSYCH: The patient's mood and manner are appropriate. Grooming and personal hygiene are appropriate. MDM: 44-year-old male with COPD history presenting for continued shortness of breath. Basically has not been using albuterol for the last 2 days because a friend whose albuterol inhaler he was borrowing took it back. States he does not have insurance to buy 1. Will give patient Decadron and a continuous breathing treatment here for sats improved will provide him with an inhaler from the hospital at this time patient is aware this is a one-time issue and he must find a way to obtain his medications in future (SHANIQUE QUIÑONEZ) - Related Data Allergies/Adverse Reactions: No Known Allergies Allergy (Verified 01/31/19 12:15) Past Medical History - Social History Smoking Status: Current Some Day Smoker Chew tobacco use (# tins/day): No Frequency of alcohol use: Occasional Drug Abuse: None Family History: Reviewed & Not Pertinent, CAD - Past Medical History Cardiac Medical History: Reports: Hx Pulmonary Embolism Pulmonary Medical History: Reports: Hx Asthma, Hx COPD Past Surgical History: Reports: Hx Orthopedic Surgery - right wrist x 2, right knee, Lt wrist - Immunizations Hx Diphtheria, Pertussis, Tetanus Vaccination: Yes <SHANIQUE QUIÑONEZ - Last Filed: 08/06/20 19:23> Physical Exam - Vital signs Vitals: Temp Pulse Resp BP Pulse Ox 97.4 F 97 22 H 123/83 92 08/06/20 16:16 08/06/20 16:16 08/06/20 16:16 08/06/20 16:16 08/06/20 16:16 Course - Laboratory Result Diagrams: 08/06/20 16:43 08/06/20 16:43 <SHANIQUE QUIÑONEZ - Last Filed: 08/06/20 19:23> - Laboratory Result Diagrams: 08/06/20 16:43 08/06/20 16:43 - Diagnostic Test Radiology reviewed: Reports reviewed <ZACHARY GIBSON - Last Filed: 08/06/20 21:48> - Re-evaluation Re-evalutation: 08/06/20 19:23 Patient still with expiratory wheezing. Pulse oximetry 98% while getting breathing treatment on oxygen. Will add magnesium. Plan to reassess. Patient will be turned over to oncoming shift to follow and disposition (SHANIQUE QUIÑONEZ) 08/06/20 20:00 Assumed care of patient from Shanique Quiñonez nurse practitioner 08/06/20 21:43 Patient is resting comfortably he is ambulatory with a steady gait. Pulse ox is stable all vital signs within normal limits. All test results were reviewed the patient. He is to continue with his steroids. Patient states he is feeling better denies chest pain, shortness of breath, no difficulty breathing at this time. Lungs without wheezing. Will discharge home with an albuterol inhaler. He was counseled on importance of outpatient follow-up with a primary care physician in the next 2 to 3 days. [facility]call physician in [facility] information was provided to the patient. Patient was given strict return to the emergency room guidelines. Return for any new or worsening symptoms. All questions were answered. Patient verbalized understanding and agrees with plan of care. 08/06/20 21:47 (ZACHARY GIBSON) - Vital Signs Vital signs: Temp Pulse Resp BP Pulse Ox 98.7 F 97 17 133/85 H 97 08/06/20 20:20 08/06/20 16:16 08/06/20 21:01 08/06/20 21:01 08/06/20 21:01 - Laboratory Laboratory results interpreted by me: 08/06/20 08/06/20 16:43 16:43 WBC 11.0 H Glucose 130 H Total Protein 5.7 L Albumin 3.4 L Discharge <SHANIQUE QUIÑONEZ - Last Filed: 08/06/20 19:23> <ZACHARY GIBSON - Last Filed: 08/06/20 21:48> - Discharge Clinical Impression: COPD exacerbation Condition: Stable Disposition: HOME, SELF-CARE Instructions: Chronic Obstructive Lung Disease ([facility]) Additional Instructions: Complete steroids as prescribed. Use inhaler every 4 hours as directed. Outpatient follow-up with a primary care physician as discussed. Return to the emergency room for any new or worsening symptoms. Referrals: TIM CORTES MD [COMMUNITY BASED STAFF] - Follow up in 3-5 days
[2020-08-06] MEDS ORDERED: MAGNESIUM SULFATE/D5W 1 GM/100 ML RTUPB IV ONE (19:23)
[2020-08-06 21:34] VITALS: BP 133/85
[2020-08-06] MEDS ORDERED: ALBUTEROL SULFATE HFA (90 MCG/PUFF) 8 GM MDI (1 MDI/ER DISP) IH SCH (21:45)
--- NOTE | 2020-08-07 15:18 | EKG REPORT ---
SEVERITY:- BORDERLINE ECG - SINUS RHYTHM PROBABLE LEFT ATRIAL ABNORMALITY : Confirmed by: Zabrina Castro MD 07-Aug-2020 15:17:55
== END 2020-08-06 22:00 | disposition home or self-care (01) ==
LOC: ER 16:02
DX: J44.1 Chronic obstructive pulmonary disease with (acute) exacerbation (principal); R07.9 Chest pain, unspecified; F17.200 Nicotine dependence, unspecified, uncomplicated; Z86.711 Personal history of pulmonary embolism
CPT/HCPCS: 93005; 94640 ×2; 99285; 96375; 96365; 36415; 82553; 82550; 83735; 85025; 80053; 84484; 71045; 93010; J3475; J1100; J3490

== ENCOUNTER 2020-08-09 01:22 | Emergency (ER) | payer SELFPAY ==
--- NOTE | 2020-08-09 01:47 | ER Document Report ---
ED Medical Screen (RME) - General Chief Complaint: Chest Pain Stated Complaint: CHEST PAIN Notes: Patient is a 44-year-old white male with a history of COPD who was recently admitted here who presents today with a chief complaint of ongoing shortness of breath for the past 2 to 3 weeks. States he just cannot get any improvement. States he was recently COVID tested and was negative. Admits to some current chest pain. I have treated and performed a rapid initial assessment of this patient. A comprehensive ED assessment and evaluation of the patient, analysis of test results and completion of medical decision making process will be conducted by additional ED providers. PHYSICAL EXAMINATION: GENERAL: Well-appearing, well-nourished and in no acute distress. A&Ox4. Answers questions appropriately. TRAVEL OUTSIDE OF THE [place] IN LAST 30 DAYS: No - Related Data Allergies/Adverse Reactions: No Known Allergies Allergy (Verified 01/31/19 12:15) Past Medical History - Past Medical History Cardiac Medical History: Reports: Hx Pulmonary Embolism Pulmonary Medical History: Reports: Hx Asthma, Hx COPD Past Surgical History: Reports: Hx Orthopedic Surgery - right wrist x 2, right knee, Lt wrist - Immunizations Hx Diphtheria, Pertussis, Tetanus Vaccination: Yes
[2020-08-09 06:35] VITALS: BP 114/76
[2020-08-09 06:50] LABS: ABSOLUTE EOSINOPHILS # (AUTO) 0.1 10^3/uL (0.0-0.6); ABSOLUTE LYMPHOCYTES (AUTO) 2.4 10^3/uL (0.5-4.7); ABSOLUTE NEUT (AUTO) 5.6 10^3/uL (1.7-8.2); BASOPHILS % (AUTO) 0.4 % (0-2); EOSINOPHILS % (AUTO) 1.1 % (0-6); HEMATOCRIT 41.8 % (37.9-51.0); HEMOGLOBIN 14.5 g/dL (13.5-17.0); LYMPHOCYTES % (AUTO) 25.9 % (13-45); MEAN CORPUSCULAR HEMOGLOBIN 33.2 pg (27.0-33.4); MEAN CORPUSCULAR HGB CONC 34.7 g/dL (32.0-36.0); MEAN CORPUSCULAR VOLUME 96 fl (80-97); MONOCYTES % (AUTO) 10.6 % (3-13); PLATELET COUNT 300 10^3/uL (150-450); RED BLOOD COUNT 4.36 10^6/uL (4.35-5.55); RED CELL DISTRIBUTION WIDTH 11.9 % (11.5-14.0); TOTAL CELLS COUNTED % (AUTO) 100 %; WHITE BLOOD COUNT 9.1 10^3/uL (4.0-10.5)
[2020-08-09 07:00] LABS: INTERNATIONAL RATION (INR) 0.98; PROTHROMBIN TIME 13.2 SEC (11.4-15.4)
[2020-08-09 07:01] LABS: PARTIAL THROMBOPLASTIN TIME 32.5 SEC (23.5-35.8)
--- NOTE | 2020-08-09 07:05 | RADIOLOGY REPORT (SQ) ---
EXAM DESCRIPTION: XR CHEST 1 VIEW COMPLETED DATE/TME: 08/09/2020 01:45 CLINICAL HISTORY: 44 years Male, cp sob COMPARISON: 10/08/16 NUMBER OF VIEWS/TECHNIQUE: 1/AP FINDINGS: Increased lung volume, clear parenchyma, normal cardiac silhouette, and intact bony thorax. IMPRESSION: No acute cardiopulmonary findings.
[2020-08-09 07:17] LABS: ALBUMIN 2.9 g/dL (3.5-5.0); ALKALINE PHOSPHATASE 58 U/L (38-126); ANION GAP 5 (5-19); ASPARTATE AMINO TRANSFERASE 20 U/L (17-59); BILIRUBIN,DIRECT 0.2 mg/dL (0.0-0.4); BILIRUBIN,TOTAL 0.4 mg/dL (0.2-1.3); BLOOD UREA NITROGEN 11 mg/dL (7-20); CALCIUM 8.4 mg/dL (8.4-10.2); CARBON DIOXIDE 28 mmol/L (22-30); CHLORIDE 104 mmol/L (98-107); CREATINE KINASE 68 U/L (55-170); GLUCOSE 101 mg/dL (75-110); POTASSIUM 4.4 mmol/L (3.6-5.0)
[2020-08-09 07:28] LABS: NT PRO BNP 64 pg/mL (<125)
[2020-08-09 07:34] LABS: TROPONIN I < 0.012 ng/mL
--- NOTE | 2020-08-10 10:08 | EKG REPORT ---
SEVERITY:- NORMAL ECG - SINUS RHYTHM ST ELEV, PROBABLE NORMAL EARLY REPOL PATTERN : Confirmed by: Zabrina Castro MD 10-Aug-2020 10:07:45
== END 2020-08-09 07:50 | disposition left against medical advice (07) ==
LOC: ER 01:22
DX: J44.9 Chronic obstructive pulmonary disease, unspecified (principal); R06.02 Shortness of breath; R07.9 Chest pain, unspecified; Z86.711 Personal history of pulmonary embolism; Z53.29 Procedure and treatment not carried out because of patient's decision for other reasons
CPT/HCPCS: 36415; 71045; 80053; 82550; 83880; 84484; 85025; 85610; 85730; 93005; 93010; 99281

== ENCOUNTER 2020-11-13 09:25 | Emergency (ER) | payer SELFPAY ==
--- NOTE | 2020-11-13 10:21 | ER Document Report ---
ED Medical Screen (RME) - General Chief Complaint: Cough Stated Complaint: COUGHING BLOOD/CHEST PAIN/SOB Time Seen by Provider: 11/13/20 10:18 Mode of Arrival: Ambulatory Information source: Patient Notes: 45-year-old male with history of COPD presents the emergency department chief complaint of cough, shortness of breath and chest pain that have been ongoing for the last 3 to 4 days. He denies any known exposure to Covid. He denies any fever, chills, nausea or vomiting. He does report yesterday he coughed up some blood. He reports today the chest pain became worse. Patient resting with unlabored respirations, no acute distress noted. I have greeted and performed a rapid initial assessment of this patient. A comprehensive ED assessment and evaluation of the patient, analysis of test results and completion of the medical decision making process will be conducted by additional ED providers. I have specifically instructed the patient or family members with the patient to immediately return to any nursing staff should anything change in the patient's condition or with their chief complaint. TRAVEL OUTSIDE OF THE [place] IN LAST 30 DAYS: No - Related Data Allergies/Adverse Reactions: No Known Allergies Allergy (Verified 11/13/20 10:16) Past Medical History - Social History Frequency of alcohol use: None Drug Abuse: None - Past Medical History Cardiac Medical History: Reports: Hx Pulmonary Embolism Pulmonary Medical History: Reports: Hx Asthma, Hx COPD Past Surgical History: Reports: Hx Orthopedic Surgery - right wrist x 2, right knee, Lt wrist - Immunizations Hx Diphtheria, Pertussis, Tetanus Vaccination: Yes Physical Exam - Vital signs Vitals: Temp Pulse Resp BP Pulse Ox 97.5 F 76 18 130/91 H 96 11/13/20 09:33 11/13/20 09:33 11/13/20 09:33 11/13/20 09:33 11/13/20 09:33 Course - Vital Signs Vital signs: Temp Pulse Resp BP Pulse Ox 97.5 F 76 18 130/91 H 96 11/13/20 09:33 11/13/20 09:33 11/13/20 09:33 11/13/20 09:33 11/13/20 09:33
[2020-11-13 11:13] LABS: ABSOLUTE EOSINOPHILS # (AUTO) 0.2 10^3/uL (0.0-0.6); ABSOLUTE LYMPHOCYTES (AUTO) 1.2 10^3/uL (0.5-4.7); ABSOLUTE MONOCYTES (AUTO) 0.7 10^3/uL (0.1-1.4); ABSOLUTE NEUT (AUTO) 3.8 10^3/uL (1.7-8.2); BASOPHILS % (AUTO) 0.7 % (0-2); EOSINOPHILS % (AUTO) 3.8 % (0-6); HEMATOCRIT 41.6 % (37.9-51.0); HEMOGLOBIN 14.5 g/dL (13.5-17.0); LYMPHOCYTES % (AUTO) 20.6 % (13-45); MEAN CORPUSCULAR HEMOGLOBIN 32.9 pg (27.0-33.4); MEAN CORPUSCULAR HGB CONC 34.9 g/dL (32.0-36.0); MEAN CORPUSCULAR VOLUME 94 fl (80-97); MONOCYTES % (AUTO) 11.6 % (3-13); PLATELET COUNT 250 10^3/uL (150-450); RED BLOOD COUNT 4.42 10^6/uL (4.35-5.55); RED CELL DISTRIBUTION WIDTH 12.8 % (11.5-14.0); SEGMENTED NEUTROPHILS % (AUTO) 63.3 % (42-78); TOTAL CELLS COUNTED % (AUTO) 100 %
[2020-11-13] MEDS ORDERED: METHYLPREDNISOLONE INJ 125 MG/2 ML SDV IV ONE (11:26)
[2020-11-13] MEDS ORDERED: IPRATROPIUM/ALBUTEROL 0.5-2.5 MG/3 ML AMPUL NEB ONE (11:26)
[2020-11-13] MEDS ORDERED: BENZONATATE 100 MG CAPSULE PO ONE (11:26)
[2020-11-13 11:39] LABS: ALBUMIN 3.2 g/dL (3.5-5.0); ALKALINE PHOSPHATASE 48 U/L (38-126); ASPARTATE AMINO TRANSFERASE 22 U/L (17-59); BILIRUBIN,DIRECT 0.1 mg/dL (0.0-0.4); BILIRUBIN,TOTAL 0.6 mg/dL (0.2-1.3); BLOOD UREA NITROGEN 13 mg/dL (7-20); CALCIUM 8.7 mg/dL (8.4-10.2); GLUCOSE 87 mg/dL (75-110); POTASSIUM 4.7 mmol/L (3.6-5.0); TOTAL PROTEIN 5.3 g/dL (6.3-8.2)
--- NOTE | 2020-11-13 11:42 | RADIOLOGY REPORT (SQ) ---
EXAM DESCRIPTION: CHEST SINGLE VIEW IMAGES COMPLETED DATE/TIME: 11/13/2020 11:17 am REASON FOR STUDY: cough/chest pain COMPARISON: 08/09/2020 EXAM PARAMETERS: NUMBER OF VIEWS: One view. TECHNIQUE: Single frontal radiographic view of the chest acquired. RADIATION DOSE: NA LIMITATIONS: None. FINDINGS: LUNGS AND PLEURA: No opacities, masses or pneumothorax. No pleural effusion. MEDIASTINUM AND HILAR STRUCTURES: No masses. Contour normal. HEART AND VASCULAR STRUCTURES: Heart normal in size. Normal vasculature. BONES: No acute findings. HARDWARE: None in the chest. OTHER: No other significant finding. IMPRESSION: NO ACUTE RADIOGRAPHIC FINDING IN THE CHEST. TECHNICAL DOCUMENTATION: JOB ID: [id number] 2010 [employer]- All Rights Reserved Reading location - IP/workstation name: [email or web address]
[2020-11-13 11:45] LABS: CARBON DIOXIDE 33 mmol/L (22-30); CHLORIDE 104 mmol/L (98-107)
[2020-11-13 12:02] LABS: ANION GAP 0 (5-19)
--- NOTE | 2020-11-13 13:05 | ER Document Report ---
ED Respiratory Problem - General Chief Complaint: Cough Stated Complaint: COUGHING BLOOD/CHEST PAIN/SOB Time Seen by Provider: 11/13/20 10:18 Mode of Arrival: Ambulatory Notes: Patient is a 45-year-old male presents emergency department with a chief complaint of a cough, congestion, and shortness of breath. Patient is current everyday smoker.Patient has a history of COPD. Has had his cough for the past 4 days. Denies any fever, body aches, or chills. Denies any nausea or vomiting. Yesterday he noted that he coughed up some blood. States that he does not have an albuterol inhaler at home. TRAVEL OUTSIDE OF THE [place] IN LAST 30 DAYS: No - Related Data Allergies/Adverse Reactions: No Known Allergies Allergy (Verified 11/13/20 10:16) Past Medical History - General Information source: Patient - Social History Smoking Status: Current Every Day Smoker Frequency of alcohol use: None Drug Abuse: None Family History: Reviewed & Not Pertinent, CAD Patient has homicidal ideation: No - Past Medical History Cardiac Medical History: Reports: Hx Pulmonary Embolism Pulmonary Medical History: Reports: Hx Asthma, Hx COPD Past Surgical History: Reports: Hx Orthopedic Surgery - right wrist x 2, right knee, Lt wrist - Immunizations Hx Diphtheria, Pertussis, Tetanus Vaccination: Yes Review of Systems - Review of Systems Notes: REVIEW OF SYSTEMS: CONSTITUTIONAL : Denies recent illness. Denies recent unintentional weight loss. Denies fever, chills, or sweats. EENT: Denies eye, ear, throat, or mouth pain, discharge, or symptoms. Denies nasal or sinus congestion. CARDIOVASCULAR: Denies chest pain. RESPIRATORY: See HPI. GASTROINTESTINAL: Denies nausea, vomiting, and diarrhea. Denies abdominal pain. Denies constipation. GENITOURINARY: Denies difficulty urinating, burning, blood in urine, urgency or frequency. MUSCULOSKELETAL: Denies neck and back pain. Denies joint pain or swelling. SKIN: Denies rash, itchiness, or lesions HEMATOLOGIC : Denies easy bruising or bleeding. LYMPHATIC: Denies swollen, painful, enlarged glands. NEUROLOGICAL: Denies no numbness or tingling denies weakness. Denies headache. Denies altered mental status. Denies alteration in speech. PSYCHIATRIC: Denies stress, anxiety, alteration in sleep patterns, or depression. All other systems reviewed and negative. Physical Exam - Vital signs Vitals: Temp Pulse Resp BP Pulse Ox 97.5 F 76 18 130/91 H 96 11/13/20 09:33 11/13/20 09:33 11/13/20 09:33 11/13/20 09:33 11/13/20 09:33 - Notes Notes: PHYSICAL EXAMINATION: GENERAL: Appears well, healthy, well-nourished, no acute distress. HEAD: Normocephalic, atraumatic. EYES: PERRL, conjunctiva normal, all extraocular movements intact, sclera nonicteric ENT: Moist mucous membranes. NECK: Supple, no noticeable swelling, redness, rash. Normal range of motion. LUNGS: Inspiratory and expiratory wheezes noted throughout all lung carlin with coarse breath sounds. CARDIOVASCULAR: S1-S2, regular rate, regular rhythm. Radial pulses 2+, normal. ABDOMEN: Normoactive bowel sounds. Soft, nontender, no guarding, no rebound tenderness, and no masses palpated. EXTREMITIES: Normal strength and range of motion, no pitting or edema. No cyanosis. NEUROLOGICAL: Moves all extremities upon command. Strength 5/5 in all extremities. PSYCH: Normal mood, normal affect. SKIN: Warm, dry. No rash, lesions, ulcerations noted. Normal skin turgor. Course - Re-evaluation Re-evalutation: 11/13/20 13:20 Hematology is unremarkable. D-dimer is negative. Sodium is 136.6. CO2 is 33, most likely due to his COPD. Troponin is negative. The patient was evaluated during the global COVID-19 pandemic and that diagnosis was suspected/considered upon their initial presentation. Their evaluation, treatment and testing was consistent with current guidelines for patients who present with complaints or symptoms that may be related to COVID-19. Chest x-ray does not show any pneumonia. Patient will quarantine. Follow-up precautions were given. Verbal discharge instructions were given to the patient. They verbalized understanding. They are stable for discharge. - Vital Signs Vital signs: Temp Pulse Resp BP Pulse Ox 97.5 F 76 18 130/91 H 96 11/13/20 09:33 11/13/20 09:33 11/13/20 09:33 11/13/20 09:33 11/13/20 09:33 - Laboratory Results Result Diagrams: 11/13/20 11:00 11/13/20 11:00 Laboratory Results Interpreted: 11/13/20 11:00 Sodium 136.6 L Carbon Dioxide 33 H Anion Gap 0 L Total Protein 5.3 L Albumin 3.2 L Critical Laboratory Results Reviewed: No Critical Results - Radiology Results Critical Radiology Results Reviewed: No Critical Results Discharge - Discharge Clinical Impression: Cough, Shortness of breath Condition: Stable Disposition: HOME, SELF-CARE Additional Instructions: As a person under investigation for COVID-19, the [facility] of Health and Human Services (division on public health) advises you to adhere to the following guidance until your test results are reported to you. If your test result is positive, you will receive additional information from your provider and your local health department at that time. Remain at home until you are cleared by the health provider or public health authorities. Keep a log of visitors to your home, notify any visitors to your home of your isolation status. If you plan to move to a new address or leave the [facility], notify the local health department in your [facility]. Call your Doctor or seek care if you have an urgent medical need. Before seeking medical care, call him to get instructions from the provider before arriving at the medical office, clinic, or hospital. Notify them that you are being tested for the virus (COVID-19) so that arrangements can be made, as necessary, to prevent transmission to others in the healthcare setting. Next, notify the local health department in your [facility]. If you test positive for Covid 19, take multivitamin daily. Make sure that has zinc, vitamin C, and B vitamins in it. Prescriptions: Prednisone [Deltasone 20 mg Tablet] 3 tab PO DAILY 5 Days #15 tablet Albuterol Sulfate [Proair HFA Inhalation Aerosol 8.5 gm MDI] 2 puff IH Q4H PRN #1 mdi PRN Reason: Inhaler, Assist Devices [Space Chamber] 1 each MC ASDIR PRN #1 spacer PRN Reason: Benzonatate [Tessalon Perles 100 mg Capsule] 100 mg PO Q8HP PRN #40 capsule PRN Reason:
[2020-11-13 13:38] VITALS: BP 125/73
--- NOTE | 2020-11-13 19:22 | EKG REPORT ---
SEVERITY:- NORMAL ECG - SINUS RHYTHM : Confirmed by: Zabrina Castro MD 13-Nov-2020 19:20:08
== END 2020-11-13 13:38 | disposition home or self-care (01) ==
LOC: ER 09:25
DX: R04.2 Hemoptysis (principal); J44.9 Chronic obstructive pulmonary disease, unspecified; R06.02 Shortness of breath; F17.200 Nicotine dependence, unspecified, uncomplicated; Z86.711 Personal history of pulmonary embolism; Z20.822 Contact with and (suspected) exposure to COVID-19
CPT/HCPCS: 93005; 94640; 99285; 96374; 36415; 85025; 87635; 80053; 84484; 85379; 71045; 93010; J2930; C9803